=== PATIENT | male | born 1950 | race Caucasian/White ===

== ENCOUNTER 2016-10-21 20:56 | Observation (INO) | payer OTHER, MEDICARE ==
[~2016-10-21] VITALS: Ht 182.9 cm; Wt 139.6 kg
--- NOTE | ~2016-10-21 | CON ---
PATIENT'S NAME: MONICA JUNG [facility] AGE: 66 Y [address] ROOM: [place] [address] LOCATION: [facility]U ADMIT DATE: 10/21/2016 Consultation DISCHARGE DATE: FAMILY PHYSICIAN: PHYSICIAN, UNKNOWN ATTENDING PHYSICIAN: JUAN DAVID LINDSAY V DATE OF CONSULTATION: 10/22/2016 REFERRING PHYSICIAN: JANETTE GARCIA MD TIME: 9:40 a.m. CHIEF COMPLAINT: Possible stroke. HISTORY OF PRESENT ILLNESS: The history was obtained from the patient's and the chart. The patient does not seem to be the greatest historian involving the event. This is a 66- year-old male who has had recent stents at [facility]. He was at a recent emergency room feeling weak and unwell. He had a temperature and was just generalized weakness, with no focal weakness. Immediately prior to being discharged, he became incoherent, incontinent of urine which seems to be an ongoing issue, and also could not move. A CAT scan of his brain was done, and it showed a questionable PICA infarct. He was brought to [facility] for further definitive testing and workup. The patient was seen in the NTU room immediately after his MRI. He is sitting in the recliner and participates with the exam. He states he has no complaints now. He does state he has been losing weight to have a knee surgery completed. His is at bedside and states the patient is back to his cognitive and motor baseline. He is seeing Cardiology in [place] and recently had stents at [facility]. REVIEW OF SYSTEMS: At this point, the patient denies any chest pain, shortness of breath, or any vision loss. All other systems were reviewed and are negative except those mentioned in the HPI. PAST MEDICAL HISTORY: Includes: 1. Ynn-yrzzvkd-wujfpibob diabetes. 2. Essential hypertension. 3. Coronary artery disease. 4. Acute coronary syndrome. PAST SURGICAL HISTORY: PATIENT'S NAME: MONICA JUNG [facility] AGE: 66 Y [address] ROOM: [place] [address] LOCATION: TU ADMIT DATE: 10/21/2016 Consultation DISCHARGE DATE: FAMILY PHYSICIAN: PHYSICIAN, UNKNOWN ATTENDING PHYSICIAN: JUAN DAVID LINDSAY V Significant for umbilical hernia. SOCIAL HISTORY: The patient does not smoke, drink, or do any illicit drugs. FAMILY HISTORY: Noncontributory due to the advanced age of the maladies with his relatives. CURRENT MEDICATIONS: Include: 1. Aspirin. 2. Gingko. 3. Plavix. 4. Tylenol as needed. 5. Hydrochlorothiazide and lisinopril. 6. Metoprolol 25 mg daily. 7. Pravastatin 40. PHYSICAL EXAMINATION: VITAL SIGNS: His blood pressure is 148/81. His respirations are 18, even, and unlabored. His pulse is 65, and his temperature is 98.4. Saturations are 94% on room air. GENERAL: This is a morbidly obese male in no acute distress. HEENT: Eyes: His pupils are equal, reactive, and accommodate to light. Extraocular movements are intact. HEART: The rate is regular per monitor, appears to be in a sinus rhythm. PSYCHIATRIC : A humerus affect. Cognition appears intact. NEUROLOGIC: NIH Stroke Scale is done. Level of conscious 0, level of conscious questions 0, LOC commands 0, best gaze 0, visual 0, #4 facial palsy 0, motor arm left 0, motor arm right 0, motor leg left 0, motor leg right 0, limb ataxia 1 for his left arm, #8 sensory 0, best language 0, dysarthria 0, extinction and inattention 0. He does have some slight nystagmus to his right lateral gaze. LABORATORY DATA: Laboratory review is pending. We did review his MRI, and it shows no acute process for ischemia. Of note, he has severe brain atrophy, more so than age. Questionable Pick disease? ASSESSMENT AND PLAN: The patient is negative for stroke. It is likely he could have had a transient ischemic attack. We will continue with transient ischemic attack, stroke workup. We will get a 2D echo. The patient is already on Plavix and aspirin. We will change the patient to atorvastatin 80 mg. The patient is back to baseline luckily. We will have PT, OT, and speech evaluate and treat PATIENT'S NAME: MONICA JUNG [facility] AGE: 66 Y [address] ROOM: [place] [address] LOCATION: [facility] ADMIT DATE: 10/21/2016 Consultation DISCHARGE DATE: FAMILY PHYSICIAN: IDA CHRISTOPHER ATTENDING PHYSICIAN: JUAN DAVID LINDSAY V as needed for the patient's therapies. We would like to thank you for the opportunity to participate in this patient's care. Dr. Browning and I developed the plan of care and assessed the patient together. If you have any questions, please notify us. Thank you for this consult. GWENDOLYN HUNT APRN FOR LINDA BROWNING MD PP/kelton /[id number] d: 10/22/16 1501 t: 10/22/16 1731, CONSULTATION REPORT
--- NOTE | ~2016-10-21 | ECHO ---
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 Summary Technically limited study. Normal LV/RV size and systolic function. The estimated left ventricular ejection fraction is 65%. Mild concentric left ventricular hypertrophy. IVC not visualized. Normal biatrial sizes. Procedure Type of Study TTE procedure:2D Echocardiogram, M-Mode, Doppler , Color Doppler. Procedure Date Date: 10/22/2016 Start: 10:34 AM Study Location: Inpatient Portable Technical Quality: Adequate visualization Indications:CVA. Appropriate Use Criteria: 9 Patient Status: Routine HR: 69 bpm BP: 146/68 mmHg M-Mode/2D Measurements LV Diastolic Dimension: 4.69 cm LV Systolic Dimension: 3.35 cm LV Septum Diastolic: 1.43 cm LV PW Diastolic: 1.64 cm AO Root Dimension: 4.4 cm Cardiac Output: 6.4 l/min AV Cusp Separation: 1.7 cm RV Diastolic Dimension: 3.91 cm EF Estimated: 65 % LVOT: 2.2 cm MV EPSS: 0.8 cm LVOT VTI: 24.4 cm LV Stroke volume: 92.71 ml Doppler Measurements AV Peak Velocity: 1.59 m/s MV Peak E-Wave: 0.85 m/s AV Peak Gradient: 10.11 mmHg MV Peak A-Wave: 0.83 m/s AV Mean Gradient: 5 mmHg MV E/A Ratio: 1.02 LVOT Peak Velocity: 1.3 m/s MV P1/2t: 93 msec PV Peak Velocity: 1.12 m/s E' Septal Velocity: 0.07 m/s PV Peak Gradient: 5.02 mmHg MV E/E' Ratio: 12.3 A' Septal Velocity: 0.1 m/s Findings Left Ventricle Mild concentric left ventricular hypertrophy. Diastolic assessment reveals Grade I diastolic dysfunction. Right Ventricle Normal right ventricle structure and function. Left Atrium Normal left atrial size. Right Atrium Normal right atrial size. Mitral Valve Normal mitral valve structure and function. Aortic Valve Mild AV sclerosis. Tricuspid Valve Normal tricuspid valve structure and function. Pulmonic Valve PV is not well seen. Pericardial Effusion No evidence of pericardial effusion. Miscellaneous The ascending aorta measures 3.4 cm. IVC not visualized. Pleural Effusion No evidence of pleural effusion. Contractility Score LV regional wall motion:(0-Non visualized 1-Normal 2-Hypokinesis 3-Akinesis 4-Dyskinesis 5-Aneurysm) Signature dtt: DIANA DOTSON dtd: 10/22/16 1034 Physician Self Edit
--- NOTE | ~2016-10-21 | CON ---
PATIENT'S NAME: MONICA JUNG [facility] AGE: 66 Y [address] ROOM: [place] [address] LOCATION: [facility] ADMIT DATE: 10/21/2016 Consultation DISCHARGE DATE: FAMILY PHYSICIAN: PHYSICIAN, UNKNOWN ATTENDING PHYSICIAN: JUAN DAVID LINDSAY V REFERRING PHYSICIAN: JANETTE GARCIA MD Consult for Dr. Lindsay. HISTORY OF PRESENT ILLNESS: This 66-year-old gentleman is referred for rehab evaluation, admitted on 10/21/2016, with weakness and was not able to do well and was not feeling well for about 1 week or so. He was evaluated in ER at local hospital and reported he had fever at that time, not much able to show more symptoms except that he was not feeling well and markedly confused at one time. He was incontinent of urine, could not move when he was being asked to, he was okay; however, later on was admitted with CT scan showed a possible subacute infarct at [facility]; however, MRI on 10/22 showed, Moderate-sized cerebral atrophy involving deep brain and greater than expected for his age, as he is 66. Mild senescent white matter change of the brain. No acute ischemic or hemorrhagic event. PAST MEDICAL HISTORY: Past history of significant, 1. Recent heart attack, status post stenting. 2. Diabetes type 2. 3. Hypertension. 4. Obesity. 5. History of coronary artery disease. 6. Status post hernia repair as per history. At the present time, he is alert, oriented, fairly well. Vitals are as follows, Blood pressure 146/68, temperature 98.5, pulse 74, respirations 18. He is 6 feet tall and weighs 139.6 kg. He can comprehend, express without much difficulty. Cranial nerves 2-12 is within normal limits. Tongue and soft palate are moving symmetrical. He can move all four with a muscle strength of at least about 4/5. His voice is clear and not wet. He can at the present time follow instructions well and deep tendons are present and equal throughout. Babinski is equivocal. Good bowel control, but not so well with bladder. PATIENT'S NAME: MONICA JUNG [facility] AGE: 66 Y [address] ROOM: [place] [address] LOCATION: [facility] ADMIT DATE: 10/21/2016 Consultation DISCHARGE DATE: FAMILY PHYSICIAN: PHYSICIAN, UNKNOWN ATTENDING PHYSICIAN: JUAN DAVID LINDSAY V He is on the following medications, 1. Protonix. 2. Tylenol. ASSESSMENT AND PLAN: At this time, we will start him on PT, OT, and Speech. Please see the orders. I feel that he is doing well. I will follow on him closely. He should not drive and/or operate any mechanical device until he is re-evaluated. At the present time, if he is discharged, I would like to follow on him on outpatient basis in about 1 week or so. Thank you for this referral. I will be following alongside with you. MD MAGALYS WYNNE/modl /[id number] d: 10/22/16 1808 t: 10/23/16 0819, CONSULTATION REPORT
--- NOTE | ~2016-10-21 | ENPV ---
Carotid Duplex Study Demographics Patient Name MONICA JUNG Date of Study 10/22/2016 Patient Number [id number] Gender Male Date of 1950 Age 66 Visit Number [id number] Height 72 Weight 307.01 Number Referring Steffen John MD Physician Physician Physician Ordering Steffen Paulino Patient Manager Physician Samuel TAI Rn Surgery Yara Lea, RT,RVT,RDCS Conclusions Summary TECHNIQUE: Ultrasound assessment of the carotids, vertebrals, and subclavians in standard fashion with image documentation utilizing elliott scale, spectral Doppler, and color flow. FINDINGS: No plaque or malformation is seen within the carotids on either side. Flow velocities are within normal limits. The vertebrals show patency with antegrade flow bilaterally. IMPRESSION: 1. NORMAL CAROTID DOPPLER EXAM. Procedure Type of Study: Cerebral:Carotid, Carotid Doppler Bilateral. Appropriate Use Criteria:9 Patient Status:Routine. Study Location:Inpatient Portable. Technical Quality:Limited visualization due to body habitus. Velocities are measured in cm/s ; Diameters are measured in cm Carotid Right Measurements Carotid Left Measurements + +--------+--------+ + + + +--------+- -------+ + + !Location !PSV !EDV !Angle !%Stenosis ! !Location !PSV !E DV !Angle !%Stenosis ! + +--------+--------+ + + + +--------+- -------+ + + !Prox CCA !98 !14 !54 !Normal ! !Prox CCA !104 !1 3 !60 !Normal ! + +--------+--------+ + + + +--------+- -------+ + + !Dist CCA !63 !12 !60 !Normal ! !Dist CCA !77 !1 4 !60 !Normal ! + +--------+--------+ + + + +--------+- -------+ + + !Mid ICA !95 !9 !60 !Normal ! !Prox ICA !48 !1 0 !60 !Normal ! + +--------+--------+ + + + +--------+- -------+ + + !Prox ECA !124 ! !60 !Normal ! !Mid ICA !11 !2 !60 !Normal ! + +--------+--------+ + + + +--------+- -------+ + + !Vertebral !56 ! !54 !Normal ! !Dist ICA !43 ! !60 !Normal ! + +--------+--------+ + + + +--------+- -------+ + + !Prox ECA !97 ! !60 ! ! + +--------+- -------+ + + !Vertebral !102 ! !60 ! ! + +--------+- -------+ + + - There is antegrade vertebral flow noted on the right side. - There is antegrade verte bral flow noted on the left side. - Add'l Measurements:Subclavian PRV 164 cm/sICAPSV/CCAPSV - Add'l Measurements:Subcl glen PRV 104 cm/sICAPSV/CCAPSV 0.96.ICAEDV/CCAEDV 0.61. 0.46.ICAEDV/CCAEDV 0.77. Impressions Right Impression No significant plaque or stenosis seen. Left Impression No significant plaque or stenosis seen. Signature dtt: Prasanna Rosales dtd: 10/22/16 1055 Physician Self Edit
--- NOTE | ~2016-10-21 | HP ---
PATIENT'S NAME: MONICA JUNG [facility] AGE: 66 Y [address] ROOM: [place] [address] LOCATION: [facility] ADMIT DATE: 10/21/2016 History & Physical DISCHARGE DATE: FAMILY PHYSICIAN: PHYSICIAN, UNKNOWN ATTENDING PHYSICIAN: JUAN DAVID LINDSAY V DATE OF SERVICE: CHIEF COMPLAINT: Altered mental status. HISTORY OF PRESENT ILLNESS: This is obtained from the transferring provider as well as the patient's family members. This is a 66-year-old male with past medical history further detailed below. The patient has been feeling weak and "unwell" in the course of last week. He was taken to the ER for an evaluation earlier today. He was febrile, but aside from that, his workup was unremarkable and he was about to be discharged. However, immediately prior to being discharged, the patient became incoherent, incontinent of urine (which has been an ongoing issue), and also could not move. A CAT scan of his brain was done and it showed a questionable subacute PICA infarct. The patient was discussed by the transferring provider at [place] with a neurologist who recommended no tPA and further workup. I am seeing the patient immediately upon his arrival to [facility]. At this point, he reports no complaints, but he also does not remember the episode of altered mental status and weakness that he had at the ER in [place]. His family reports that at this point the patient is back to his cognitive and motor baseline. Of note, the patient did recently have a "heart attack with stents" at [facility]. He was seen by an alternate supervisor propellant charge loading in [place] about 6 days ago and apparently no additional workup was ordered. REVIEW OF SYSTEMS: At this point, the patient denies any chest pain, shortness of breath, nausea, vomiting, diarrhea, or palpitations. All systems have been reviewed and are negative aside from pertinent positives mentioned above. PAST MEDICAL HISTORY: 1. Pzt-pekcwll-extifkxod diabetes. 2. Essential hypertension. 3. Coronary artery disease. 4. Acute coronary syndrome. PATIENT'S NAME: MONICA JUNG [facility] AGE: 66 Y [address] ROOM: [place] [address] LOCATION: [facility] ADMIT DATE: 10/21/2016 History & Physical DISCHARGE DATE: FAMILY PHYSICIAN: PHYSICIAN, UNKNOWN ATTENDING PHYSICIAN: JUAN DAVID LINDSAY V PAST SURGICAL HISTORY: Significant for hernia. SOCIAL HISTORY: The patient denies any history of ongoing toxic habits. FAMILY HISTORY: Reviewed and is noncontributory due to advanced age. CURRENT MEDICATIONS: 1. Aspirin. 2. Gingko. 3. Plavix. 4. Tylenol. 5. Hydrochlorothiazide/lisinopril. 6. Metoprolol 25 daily. 7. Pravastatin 40. PHYSICAL EXAMINATION: VITAL SIGNS: Blood pressure 140/74, heart rate is in the mid 70s and irregular, saturating 94% on room air, respirations of 16, and he is afebrile. GENERAL: Appears as a morbidly obese, middle-aged male, in no acute distress. NEUROLOGIC: A detailed neurological exam was conducted by tn shows no focal abnormalities. EYES: Exam shows pupils are equal and reactive to light. LYMPHATICS: Exam shows no cervical lymphadenopathy. ENDOCRINE: Exam shows no thyromegaly. LUNGS: Clear to auscultation bilaterally. HEART: Rate is regular. No appreciable murmurs, gallops, or rubs. EXTREMITIES: There is 1+ bilateral pitting lower extremity edema. GI: Abdomen is soft, nontender. : No costovertebral angle tenderness. VASCULAR: Reveals 2+ pedal pulses. SKIN: Chronic venous stasis changes over his bilateral lower extremities. MUSCULOSKELETAL: Exam is unremarkable. PSYCHIATRIC: Exam reveals slightly peculiar affect, but preserved cognition and mood. LABORATORY DATA: Review of the studies from the outside facility is significant for an EKG which demonstrates normal sinus rhythm at 102 beats per minute. There are Q- waves in leads II, III, aVF, as well as V4, V5 with very poor R-wave progression. Lab results are unremarkable. ASSESSMENT AND PLAN: PATIENT'S NAME: MONICA JUNG [facility] AGE: 66 Y [address] ROOM: [address] [place], [place] [address] LOCATION: [facility] ADMIT DATE: 10/21/2016 History & Physical DISCHARGE DATE: FAMILY PHYSICIAN: PHYSICIAN, UNKNOWN ATTENDING PHYSICIAN: JUAN DAVID LINDSAY V This is a 66-year-old male who will be admitted for observation to rule out a transient ischemic attack versus cerebrovascular accident. We will conduct standard transient ischemic attack/cerebrovascular accident studies in the morning including 2 dimensional echocardiogram, MRI of his brain, as well as carotid dopplers . We will request a missionary coordinator to assess the patient. 1. Njg-nvobuaz-wdoypugsn diabetes. It appears that the patient is not on any medications and we will consider starting therapy once his workup is complete. 2. Coronary artery disease. We will continue the patient on Plavix and aspirin as well as metoprolol. 3. Essential hypertension. We will continue hydrochlorothiazide and lisinopril. 4. Febrile illness. This was transient in the outside hospital. We will monitor the patient for any systemic symptoms or evidence of infection. 5. Incontinence. I was told that a UA was done at the outside facility though we do not have the results. We will request for the results to be sent here and consider further workup and treatment of urinary tract infection. The patient may need further workup with the urologist once his cerebrovascular accident workup is complete. 6. Additional manage will depend on clinical course. Time dedicated to this patient encounter is 35 minutes. MD KUSUM BEAVERS/kelton /[id number] D: [id number] T: [id number] HISTORY & PHYSICAL
[2016-10-21] MEDS ORDERED: ASPIRIN (CHILDR81 MG PO (23:17)
[2016-10-21] MEDS ORDERED: VOLTAREN 1% GE100 GM TOP (23:17)
[2016-10-21] MEDS ORDERED: PLAVIX75 MG PO (23:18)
[2016-10-21] MEDS ORDERED: TYLENOL EXTRA500 MG PO (23:18)
[2016-10-21] MEDS ORDERED: LOPRESSOR25 MG PO (23:19)
[2016-10-21] MEDS ORDERED: PRINIVIL OR ZES10 MG PO (23:19)
[2016-10-21] MEDS ORDERED: HYDRODIURIL12.5 MG PO (23:19)
[2016-10-21] MEDS ORDERED: PRAVACHOL40 MG PO (23:19)
--- NOTE | 2016-10-22 01:58 | NUR ---
THE PATIENT IS FROM [facility]. LIVES AT HOME WITH HIS . HIS DAUGHTER WAS VISITING HIM AND CHECKED HIS BP WHICH WAS ELEVATED INTO THE 180'S OVER 90'S AND HE WAS ALSO HAVING SOME WEAKNESS AND CONFUSION. THE PATIENT WAS THEN TAKEN TO THE [facility] WHERE HIS BILATERAL LEGS BECAME VERY WEAK, HE WAS NOT FOLLOWING COMMANDS, AND WAS DISORIENTED. THEY THEN DID A CT OF HIS HEAD THAT SHOWED A POSSIBLE STROKE AND TRANSFERRED HIM HERE TO [facility]. HE ARRIVED TO THE UNIT AT 2300. HE IS ALERT AND ORIENTED X2, FORGETFUL OF MONTH, HE HAS NKA. HE HAS A HX OF HTN, A STENT PLACED IN [facility] DUE TO A HEART ATTACK, HERNIA REPAIR, AND TYPE 2 DIABETES. PIV AND CHI CATHETER IN PLACE ON ARRIVAL.
--- NOTE | 2016-10-22 04:43 | NUR ---
Significant Event: The patient is Alert and Oriented x3. Denies Numbness and Tingling. Moves all extremities spontaneously and to command. Up with 1 assist, Gaitbelt and walker/cane. NIHSS 1 forgetful of month at times. VSS, slightly Hypertensive. On 1L oxygen while sleeping. Abrasions to the Right Leg and left arm. Dry skin and venous staining to legs. 2+ Edema noted to bilateral legs. Han D'CD at 0030, the patient is Incontinent of urine and has Hematuria from the catheter. PIV to the Right hand saline locked. Cardiac/ADA Diet. ACCU checks BID ,17. Follow up: MRI, ECHO, CAROTIDS
[2016-10-22 05:02] LABS: BASOPHIL # 0.1 K/uL (0.0-0.2); BASOPHIL % 0.7 %; EOSINOPHIL # 0.3 K/uL (0.0-0.5); EOSINOPHIL % 3.2 %; HEMATOCRIT 44.3 % (37.0-53.0); HEMOGLOBIN 15.3 g/dL (11.0-16.0); IMMATURE GRANULOCYTE % 0.3 %; LYMPHOCYTE # 2.1 K/uL (0.8-4.0); LYMPHOCYTE % 23.2 %; MCH 31.7 pg (27.0-34.0); MCHC 34.5 gm/dL (32.0-36.5); MCV 91.9 fl (83.0-98.0); MONOCYTE % 11.3 %; MPV 10.9 fl (9.4-12.4); NEUTROPHIL # (ANC) 5.6 K/uL (1.4-9.0); NEUTROPHIL % 61.3 %; NRBC % 0 /100WBC (0-0.00); PLATELET COUNT 136 K/uL (150-450); RBC 4.82 M/uL (3.50-5.50); RDW-CV 13.8 % (11.9-14.6); WBC 9.1 K/uL (4.0-11.0)
[2016-10-22 05:09] LABS: INR - (THERAPEUTIC) 1.12 (0.92-1.07); PROTIME 11.8 SECONDS (9.8-11.4); PTT 27 SECONDS (25-32)
[2016-10-22 05:25] LABS: ANION GAP 13.8 (10.0-19.0); BLOOD UREA NITROGEN 13 mg/dL (6-24); CALCIUM 8.7 mg/dL (8.5-10.5); CHLORIDE 105 mMol/L (96-110); CO2 25 mMol/L (22-32); CPK 143 IU/L (35-332); ESTIMATED GFR (MDRD EQUATION) > 60; POTASSIUM 3.8 mMol/L (3.7-5.1); SODIUM 140 mMol/L (135-145)
--- NOTE | 2016-10-22 09:21 | NUR ---
ROUTINE CVA NUTRITION ED CONSULT NOTED. WILL COMPLETE PRIOR TO DISMISSAL.
[2016-10-22] MEDS ORDERED: LISINOPRIL-HCT1 EACH PO (13:33)
--- NOTE | 2016-10-22 16:52 | NUR ---
Significant Event: Patient A/O X3. Denies N/T. Follows commands. Moves everything spontaneously and to command. NIHSS 1. PERRLA. VSS. Afebrile. Generalized edema. Room air. Sats in the mid 90s. LS clear and diminished. Non productive cough. BS active X4. Voids per toilet. Incontinent at times. Cardiac/ADA diet. Generalized abrasions to arms and legs. Venous staining to bilateral legs and feet. R) hand PIV SLL and removed prior to dismissal. 1 assist with gaitbelt and walker. Accuchecks BID. Refused SCDS. Patient pleasant and cooperative with cares. Presented patient with education and discharge material. Stated understanding. Dismissed to home with via private auto. Follow up:
== END 2016-10-22 16:50 | disposition disaster alternative care site (69) ==
LOC: GNTU 20:56
PROVIDERS: ADMIT Internal Medicine
DX: G93.40 Encephalopathy, unspecified (principal); I10 Essential (primary) hypertension; I25.10 Atherosclerotic heart disease of native coronary artery without angina pectoris; E11.9 Type 2 diabetes mellitus without complications; I25.2 Old myocardial infarction; R32 Unspecified urinary incontinence; E66.01 Morbid (severe) obesity due to excess calories; Z68.41 Body mass index [BMI] 40.0-44.9, adult; Z95.5 Presence of coronary angioplasty implant and graft; Z98.890 Other specified postprocedural states
CPT/HCPCS: G0378; G8978; G8979; G8980; G8987; G8988; G8989; G8996; G8997; G8998; Q9967